=== PATIENT | female | born 1985 | race African-American/Black ===

== ENCOUNTER 2017-11-21 19:07 | Emergency (ER) | payer MEDICAID, OTHER ==
[~2017-11-21] VITALS: Ht 165.1 cm; Wt 72.6 kg
[~2017-11-21 19:07] MED LIST: FERR325T50 PO; PREN-96 PO
[2017-11-21 21:26] VITALS: BP 129/80
== END 2017-11-21 21:48 | disposition home or self-care (01) ==
LOC: ER 19:13
DX: J02.9 Acute pharyngitis, unspecified (principal)

== ENCOUNTER 2018-01-31 04:46 | Emergency (ER) | payer OTHER ==
[~2018-01-31] VITALS: Ht 165.1 cm; Wt 74.8 kg
[2018-01-31 04:51] VITALS: BP 128/78
== END 2018-01-31 06:04 | disposition home or self-care (01) ==
LOC: ER 04:49
DX: G43.909 Migraine, unspecified, not intractable, without status migrainosus (principal)
CPT/HCPCS: 70450

== ENCOUNTER 2018-04-29 19:40 | Emergency (ER) | payer OTHER ==
[~2018-04-29] VITALS: Ht 165.1 cm; Wt 72.6 kg
[2018-04-29 20:10] VITALS: BP 143/85
[2018-04-29 20:56] LABS: Urine Bacteria NONE SEEN /hpf (None Seen); Urine Blood 3+ /uL (Negative); Urine Mucus FEW (None Seen); Urine Specific Gravity 1.026 (1.001-1.035); Urine WBC 111 /hpf (0 - 5)
[2018-04-29 20:58] LABS: Amphetamine Screen, Urine NEGATIVE (NEGATIVE); Barbiturate Scree,Urine NEGATIVE (NEGATIVE); Benzodiazephine Screen, Urine NEGATIVE (NEGATIVE); Cannabinoid Screen, Urine NEGATIVE (NEGATIVE); Cocaine Screen, Urine NEGATIVE (NEGATIVE); Opiate Scree,Urine NEGATIVE (NEGATIVE); Phencyclidine Screen, Urine NEGATIVE (NEGATIVE)
[2018-04-29 21:19] LABS: Basophils # (auto) 0.1 uL; Basophils % (auto) 0.6 % (0.0-2.0); Eosinophils # (auto) 0.2 uL; Eosinophils % (auto) 1.3 % (0.0-7.0); Hematocrit 37.3 % (36.0-46.0); Hemoglobin 12.2 g/dL (12.2-16.2); Lymphocytes # (auto) 2.5 uL; Lymphocytes % (auto) 21.2 % (10.0-50.0); Mean Corpuscular Hemoglobin 28.2 pg (28.0-32.0); Mean Corpuscular Hgb Conc. 32.8 g/dL (32.0-36.0); Monocytes # (auto) 1.1 uL; Monocytes % (auto) 9.3 % (0.0-12.0); Neutrophils % (auto) 67.6 % (37.0-80.0); Nucleated Red Blood Cells % 0.1 %; Platelet Count (auto) 297 10^3/uL (140-450); Red Blood Cells 4.34 10^6/uL (4.0-5.20); Red Cell Distribution Width 13.2 % (11.8-14.3); White Blood Cell 11.8 10^3/uL (4.4-10.8)
[2018-04-29 21:36] LABS: Albumin 3.6 g/dL (3.4-5.0); BUN/Creatinine Ratio 16.4; Calcium 8.4 mg/dL (8.5-10.1); Potassium 3.2 mmol/L (3.5-5.1)
[2018-04-29 21:39] LABS: Bilirubin, Total 0.2 mg/dL (0.2-1.0); Total Protein 7.9 g/dL (6.4-8.2)
[2018-04-29] MEDS ORDERED: LEVOFLOXACIN 500 MG TAB PO ONE (22:15)
[2018-04-29] MEDS ORDERED: POTASSIUM CHL 20 Meq TABLET PO ONE (22:15)
== END 2018-04-30 00:30 | disposition left against medical advice (07) ==
LOC: ER 19:42
DX: R42 Dizziness and giddiness (principal); R51 Headache; R11.0 Nausea; Z53.21 Procedure and treatment not carried out due to patient leaving prior to being seen by health care provider
CPT/HCPCS: 36415; 70450; 80053; 80307; 81001; 85025

== ENCOUNTER 2018-07-23 10:56 | Emergency (ER) | payer OTHER ==
[~2018-07-23] VITALS: Ht 165.1 cm; Wt 74.4 kg
[2018-07-23 11:49] LABS: Urine Bacteria FEW /hpf (None Seen); Urine Blood 1+ /uL (Negative); Urine Mucus FEW (None Seen); Urine Specific Gravity 1.028 (1.001-1.035); Urine WBC 53 /hpf (0 - 5)
[2018-07-23 11:53] VITALS: BP 106/69
== END 2018-07-23 12:49 | disposition home or self-care (01) ==
LOC: ER 11:06
DX: N39.0 Urinary tract infection, site not specified (principal)
CPT/HCPCS: 74176; 81001; 81025

== ENCOUNTER 2019-02-04 08:10 | Emergency (ER) | payer MEDICAID ==
[~2019-02-04] VITALS: Ht 165.1 cm; Wt 72.6 kg
[2019-02-04] MEDS ORDERED: SODIUM CHLORIDE 0.9% 1,000 ML IV ONE ×2 (08:48)
[2019-02-04 08:59] LABS: Urine Bacteria FEW /hpf (None Seen); Urine Blood Negative /uL (Negative); Urine Mucus MODERATE (None Seen); Urine Specific Gravity 1.032 (1.001-1.035); Urine WBC 8 /hpf (0 - 5)
[2019-02-04] MEDS ORDERED: PROMETHAZINE HCL 25 MG/ML 1ML IV ONE (09:00)
[2019-02-04 09:43] LABS: Basophils # (auto) 0.1 uL; Basophils % (auto) 0.6 % (0.0-2.0); Eosinophils # (auto) 0.1 uL; Eosinophils % (auto) 0.4 % (0.0-7.0); Hematocrit 36.8 % (36.0-46.0); Hemoglobin 12.2 g/dL (12.2-16.2); Lymphocytes # (auto) 3.2 uL; Lymphocytes % (auto) 25.2 % (10.0-50.0); Mean Corpuscular Volume 84.8 fL (80.0-100.0); Monocytes # (auto) 0.8 uL; Monocytes % (auto) 6.6 % (0.0-12.0); Neutrophils # (auto) 8.4 uL; Neutrophils % (auto) 67.2 % (37.0-80.0); Platelet Count (auto) 327 10^3/uL (140-450); Red Blood Cells 4.35 10^6/uL (4.0-5.20); Red Cell Distribution Width 13.6 % (11.8-14.3); White Blood Cell 12.5 10^3/uL (4.4-10.8)
[2019-02-04 10:00] LABS: Albumin 3.7 g/dL (3.4-5.0); Calcium 9.4 mg/dL (8.5-10.1); Potassium 3.7 mmol/L (3.5-5.1)
[2019-02-04 10:09] LABS: Bilirubin, Total 0.3 mg/dL (0.2-1.0); Total Protein 8.1 g/dL (6.4-8.2)
[2019-02-04 11:00] VITALS: BP 110/62
== END 2019-02-04 13:09 | disposition home or self-care (01) ==
LOC: ER 08:10
DX: O21.8 Other vomiting complicating pregnancy (principal); O23.41 Unspecified infection of urinary tract in pregnancy, first trimester; Z3A.01 Less than 8 weeks gestation of pregnancy
CPT/HCPCS: 36415; 80053; 81001; 84702; 85025; 96361; 96374; 99283; J2550; J7030

== ENCOUNTER 2019-02-20 20:24 | Emergency (ER) | payer MEDICAID ==
[~2019-02-20] VITALS: Ht 165.1 cm; Wt 76.7 kg
[2019-02-20 21:33] LABS: Urine Blood Trace /uL (Negative); Urine Specific Gravity 1.027 (1.001-1.035)
[2019-02-20 22:20] VITALS: BP 129/78
[2019-02-20] MEDS ORDERED: cefTRIAXone SOD 1,000 MG VL IM ONE (22:30)
[2019-02-20] MEDS ORDERED: PHENAZOPYRIDINE HCL 100 MG TAB PO ONE (22:30)
== END 2019-02-20 23:07 | disposition home or self-care (01) ==
LOC: ER 20:25
DX: O23.41 Unspecified infection of urinary tract in pregnancy, first trimester (principal); Z3A.08 8 weeks gestation of pregnancy
CPT/HCPCS: 81003; 81025; 96372; 99283; J0696

== ENCOUNTER 2019-03-07 11:24 | Emergency (ER) | payer MEDICAID ==
[~2019-03-07] VITALS: Ht 165.1 cm; Wt 74.8 kg
[2019-03-07] MEDS ORDERED: SODIUM CHLORIDE 0.9% 1,000 ML IV ONE (11:38)
[2019-03-07 11:42] VITALS: BP 131/74
[2019-03-07] MEDS ORDERED: ACETAMINOPHEN 325 MG TAB PO ONE (11:45)
[2019-03-07] MEDS ORDERED: ONDANSETRON HCL 4 MG/2 ML VIAL IV ONE (11:45)
[2019-03-07 12:18] LABS: Basophils # (auto) 0 uL; Basophils % (auto) 0.4 % (0.0-2.0); Eosinophils # (auto) 0.1 uL; Eosinophils % (auto) 0.6 % (0.0-7.0); Hematocrit 34.9 % (36.0-46.0); Hemoglobin 11.9 g/dL (12.2-16.2); Lymphocytes # (auto) 0.8 uL; Lymphocytes % (auto) 7.8 % (10.0-50.0); Mean Corpuscular Hemoglobin 28.9 pg (28.0-32.0); Mean Corpuscular Volume 85.2 fL (80.0-100.0); Monocytes # (auto) 0.9 uL; Monocytes % (auto) 8.9 % (0.0-12.0); Neutrophils # (auto) 8.1 uL; Neutrophils % (auto) 82.3 % (37.0-80.0); Platelet Count (auto) 253 10^3/uL (140-450); Red Cell Distribution Width 13.4 % (11.8-14.3); White Blood Cell 9.9 10^3/uL (4.4-10.8)
[2019-03-07 12:31] LABS: Albumin 3.4 g/dL (3.4-5.0); Calcium 9.1 mg/dL (8.5-10.1); Potassium 3.8 mmol/L (3.5-5.1)
[2019-03-07 12:36] LABS: BUN/Creatinine Ratio 13.2; Bilirubin, Total 0.3 mg/dL (0.2-1.0); Total Protein 8.2 g/dL (6.4-8.2)
[2019-03-07 12:53] LABS: Urine WBC None Seen /hpf (0 - 5)
[2019-03-07 13:12] LABS: Urine Bacteria FEW /hpf (None Seen); Urine Blood 1+ /uL (Negative); Urine Mucus FEW (None Seen); Urine Specific Gravity 1.025 (1.001-1.035)
== END 2019-03-07 13:51 | disposition home or self-care (01) ==
LOC: ER 11:24
DX: B34.9 Viral infection, unspecified (principal); R19.7 Diarrhea, unspecified; O34.81 Maternal care for other abnormalities of pelvic organs, first trimester; N83.202 Unspecified ovarian cyst, left side; Z3A.11 11 weeks gestation of pregnancy
CPT/HCPCS: 36415; 76801; 80053; 81001; 85025; 96374; 99284; J2405

== ENCOUNTER 2019-03-30 18:12 | Emergency (ER) | payer MEDICAID ==
[~2019-03-30] VITALS: Ht 165.1 cm; Wt 74.4 kg
[2019-03-30 18:28] VITALS: BP 156/56
[2019-03-30] MEDS ORDERED: SODIUM CHLORIDE 0.9% 1,000 ML IV ONE (18:45)
[2019-03-30 19:18] LABS: Basophils # (auto) 0.1 uL; Basophils % (auto) 0.6 % (0.0-2.0); Eosinophils # (auto) 0.1 uL; Eosinophils % (auto) 0.8 % (0.0-7.0); Hemoglobin 11.3 g/dL (12.2-16.2); Lymphocytes # (auto) 2.7 uL; Lymphocytes % (auto) 20.2 % (10.0-50.0); Mean Corpuscular Hemoglobin 28.5 pg (28.0-32.0); Mean Corpuscular Hgb Conc. 33.2 g/dL (32.0-36.0); Mean Corpuscular Volume 85.6 fL (80.0-100.0); Monocytes # (auto) 1.1 uL; Monocytes % (auto) 8.3 % (0.0-12.0); Neutrophils # (auto) 9.4 uL; Neutrophils % (auto) 70.1 % (37.0-80.0); Platelet Count (auto) 306 10^3/uL (140-450); Red Blood Cells 3.97 10^6/uL (4.0-5.20); Red Cell Distribution Width 13.9 % (11.8-14.3); White Blood Cell 13.3 10^3/uL (4.4-10.8)
[2019-03-30 19:22] LABS: Urine Amorphous Crystal FEW /hpf (None Seen); Urine Bacteria FEW /hpf (None Seen); Urine Blood Negative /uL (Negative); Urine Hyaline Cast FEW /lpf (0 - 2); Urine Mucus FEW (None Seen); Urine Specific Gravity 1.026 (1.001-1.035); Urine WBC 2 /hpf (0 - 5)
[2019-03-30 19:40] LABS: Albumin 3.4 g/dL (3.4-5.0); Calcium 9.5 mg/dL (8.5-10.1); Potassium 3.4 mmol/L (3.5-5.1)
[2019-03-30 19:44] LABS: Bilirubin, Total 0.2 mg/dL (0.2-1.0); Total Protein 8.1 g/dL (6.4-8.2)
== END 2019-03-30 20:38 | disposition left against medical advice (07) ==
LOC: ER 18:14
DX: O99.612 Diseases of the digestive system complicating pregnancy, second trimester (principal); K21.9 Gastro-esophageal reflux disease without esophagitis; Z3A.14 14 weeks gestation of pregnancy
CPT/HCPCS: 36415; 76805; 80053; 81001; 84702; 85025

== ENCOUNTER → 2023-09-28 | Outpatient (CLI) | payer MEDICAID ==
[~2023-09-28] MED LIST changes: +PANT40TA2 PO
[2023-09-28 10:03] LABS: Basophils # (auto) 0.1 10 ^3/uL (0-0.2); Basophils % (auto) 0.5 % (0.0-2.0); Eosinophils # (auto) 0.1 10 ^3/uL (0-0.8); Eosinophils % (auto) 0.8 % (0.0-7.0); Hematocrit 33.1 % (36.0-46.0); Hemoglobin 11.4 g/dL (12.2-16.2); Lymphocytes # (auto) 2.2 10 ^3/uL (0.4-5.4); Lymphocytes % (auto) 18.6 % (10.0-50.0); Mean Corpuscular Hemoglobin 28.6 pg (28.0-32.0); Mean Corpuscular Hgb Conc. 34.3 g/dL (32.0-36.0); Mean Corpuscular Volume 83.2 fL (80.0-100.0); Monocytes # (auto) 0.8 10 ^3/uL (0-1.3); Monocytes % (auto) 6.7 % (0.0-12.0); Neutrophils # (auto) 8.6 10 ^3/uL (1.6-8.6); Neutrophils % (auto) 73.4 % (37.0-80.0); Nucleated Red Blood Cells % 0.1 %; Red Blood Cells 3.98 10^6/uL (4.0-5.20); Red Cell Distribution Width 14.3 % (11.8-14.3); White Blood Cell 11.7 10^3/uL (4.4-10.8)
[2023-09-28 10:45] LABS: Amphetamine Screen, Urine Neg (NEGATIVE)
[2023-09-28 10:46] LABS: Barbiturate Scree,Urine Neg (NEGATIVE); Benzodiazephine Screen, Urine Neg (NEGATIVE); Cannabinoid Screen, Urine Neg (NEGATIVE); Cocaine Screen, Urine Neg (NEGATIVE); Opiate Scree,Urine Neg (NEGATIVE); Phencyclidine Screen, Urine Neg (NEGATIVE)
[2023-09-28 10:49] LABS: Alanine Aminotransferase 19 U/L (7-40); Albumin 4.3 g/dL (3.2-4.8); Alkaline Phosphatase 76 U/L (46-116); Anion Gap 5 (5-15); Aspartate Aminotransferase < 8 U/L (13-40); BUN/Creatinine Ratio 11.9 (10.0-20.0); Blood Urea Nitrogen 7 mg/dL (9-23); Calcium 9.6 mg/dL (8.5-10.1); Carbon Dioxide 26 mmol/L (20-30); Chloride 103 mmol/L (98-107); Glucose 92 mg/dL (74-106); LDL Cholesterol 101 mg/dL (< 100); Potassium 3.8 mmol/L (3.5-5.1); Sodium 134 mmol/L (136-145); Triglycerides 81 mg/dL (< 150)
[2023-09-28 10:50] LABS: Bilirubin, Total 0.3 mg/dL (0.2-1.0); Cholesterol 184 mg/dL (< 200); HDL Cholesterol 63 mg/dL (40-59); Total Protein 7.5 g/dL (5.7-8.2)
[2023-09-28 10:52] LABS: Thyroid Stimulating Hormone 0.12 uIU/mL (0.55-4.78)
[2023-09-28 11:00] LABS: Beta HCG, Quantitative 175845.2 mIU/mL (1.5-4.2)
[2023-09-29 08:06] LABS: Varicella Zoster IgG Antibody 2651 index (Immune >165)
[2023-09-29 11:07] LABS: RPR Non Reactive (Non Reactive)
[2023-09-30 09:06] LABS: Chlamydia Trachomatis, NAA Negative (Negative); Neisseria gonorrhoeae, NAA Negative (Negative)
[2023-10-02 00:06] LABS: QuantiFERON-TB Gold Plus Negative (Negative)
== END | disposition home or self-care (01) ==
LOC: LAB 09:30
PROVIDERS: ATTEND Obstetrics & Gynecology
DX: Z34.80 Encounter for supervision of other normal pregnancy, unspecified trimester (principal); Z3A.00 Weeks of gestation of pregnancy not specified
CPT/HCPCS: 36415; 80053; 80061; 80307; 84439; 84443; 84702; 85025; 86592; 86703; 86762; 86787; 86850; 86900; 86901; 87086; 87340; 87902

== ENCOUNTER 2024-04-09 19:26 | Observation (INO) | payer MEDICAID ==
[~2024-04-09] VITALS: Ht 165.1 cm; Wt 81.6 kg
[2024-04-09 21:27] LABS: Basophils # (auto) 0 10 ^3/uL (0-0.2); Basophils % (auto) 0.3 % (0.0-2.0); Eosinophils # (auto) 0.1 10 ^3/uL (0-0.8); Eosinophils % (auto) 0.5 % (0.0-7.0); Hemoglobin 12.6 g/dL (12.2-16.2); Lymphocytes # (auto) 2.1 10 ^3/uL (0.4-5.4); Lymphocytes % (auto) 19.2 % (10.0-50.0); Mean Corpuscular Hemoglobin 29.1 pg (28.0-32.0); Mean Corpuscular Hgb Conc. 33.3 g/dL (32.0-36.0); Mean Corpuscular Volume 87.3 fL (80.0-100.0); Monocytes # (auto) 0.9 10 ^3/uL (0-1.3); Monocytes % (auto) 8.5 % (0.0-12.0); Neutrophils # (auto) 7.9 10 ^3/uL (1.6-8.6); Neutrophils % (auto) 71.5 % (37.0-80.0); Platelet Count (auto) 177 10^3/uL (140-450); Red Blood Cells 4.35 10^6/uL (4.0-5.20)
[2024-04-09 21:38] LABS: Protein, Urine 6.1 mg/dL (1-14); Urine Bacteria FEW /hpf (None Seen); Urine Blood Negative /uL (Negative); Urine Clarity Clear (Clear); Urine Color Colorless (Yellow); Urine Protein, UAD Negative (Negative); Urine Specific Gravity 1.005 (1.001-1.035); Urine Squamous Epithelial Cell FEW /hpf (<5); Urine Urobilinogen Normal (Negative)
[2024-04-09 21:41] LABS: Creatinine, Urine 25.62 mg/dL (30.0-125.0); Urine Protein/Creatinine Ratio 0.24
[2024-04-09 21:46] LABS: Amphetamine Screen, Urine Neg (NEGATIVE); Barbiturate Scree,Urine Neg (NEGATIVE); Benzodiazephine Screen, Urine Neg (NEGATIVE); Cannabinoid Screen, Urine Neg (NEGATIVE); Cocaine Screen, Urine Neg (NEGATIVE); Opiate Scree,Urine Neg (NEGATIVE); Phencyclidine Screen, Urine Neg (NEGATIVE)
[2024-04-09 21:46] LABS: INR 0.9 (0.9-1.15); Partial Thromboplastin Time 27.2 SEC (24.5-34.5); Prothrombin Time 9.6 sec (9.3-11.8)
[2024-04-09 21:49] LABS: Alanine Aminotransferase 23 U/L (7-40); Anion Gap 8 (5-15); Aspartate Aminotransferase 36 U/L (13-40); Calcium 10.2 mg/dL (8.7-10.4); Carbon Dioxide 24 mmol/L (20-31); Chloride 107 mmol/L (98-107); Glucose 80 mg/dL (74-106); Potassium 3.6 mmol/L (3.5-5.1); Sodium 139 mmol/L (136-145); Uric Acid 4.1 mg/dL (3.1-7.8)
[2024-04-09 21:50] LABS: Bilirubin, Total 0.6 mg/dL (0.2-1.0); Total Protein 7.2 g/dL (5.7-8.2)
[2024-04-09 21:55] LABS: Alkaline Phosphatase 184 U/L (46-116); BUN/Creatinine Ratio 8.3 (10.0-20.0); Blood Urea Nitrogen < 5 mg/dL (9-23)
--- NOTE | 2024-04-09 21:55 | DVH ---
Procedure: US BIOPHYSICAL PROFILE 04/09/2024 09:32 PM Indication: Rule Out Pre eclampsia Comparison: None Technique: Sonogram of gravid uterus utilizing grayscale and color techniques. FINDINGS: Single living intrauterine gestation. Presentation: Cephalic Placenta: Anterior heart rate: 153 bpm PAULIE: 12.8 cm Maternal cervix: Not visualized Biophysical Profile: breathing score: 2 movement score: 2 tone: 2 Quantitative PAULIE score: 2 Total score: 8/8 IMPRESSION: 1. Single living as above. 2. Biophysical profile score: 8/8.
[2024-04-09] MEDS ORDERED: ONDANSETRON HCL 4 MG/2 ML VIAL IV ONE (22:00)
--- NOTE | 2024-04-09 23:32 | DVHDS2 ---
Physician Discharge Progress N Final Diagnosis: chronic HTN Secondary Diagnosis: hayes perry contractions Operations or Procedures: Operations or Procedures S: 38yo IUP@38.5wks presents to OB triage with c/o nausea, diarrhea, epigastric pain that shoots to her back and uterine cramps. Denies LOF/VB/ALEX/vision changes. Endorses +FM. PNC with Dr. Martino, comlicated by [facility], not on meds, stopped taking baby aspirin at 37 weeks. O: VSS NST reactive SVE: /-3, vertex, intact 1L LR IV bolus and zofran 4mg IVP given Laboratory Tests Test 04/09/24 20:40 04/09/24 21:02 Range/Units Urine Color Colorless Yellow Urine Clarity Clear Clear Urine pH 7.0 5.0-9.0 Urine Specific [place] 1.005 1.001-1.035 Urine Protein Negative Negative Urine Ketones Trace Negative Urine Blood Negative Negative /uL Urine Nitrite Negative Negative Urine Bilirubin Negative Negative Urine Urobilinogen Normal Negative mg/dL Urine Leukocyte Esterase Negative Negative /uL Urine RBC None seen 0 - 4 /hpf Urine Microscopic WBC 0-5 /HPF Urine Squamous Epithelial Cells Few <5 /hpf Urine Bacteria Few H None Seen /hpf Urine Creatinine 25.62 L 30.0-125.0 mg/dL Urine Protein/Creatinine Ratio 0.24 Urine Glucose Normal Normal mg/dL Urine Total Protein 6.1 1-14 mg/dL Urine Opiates Screen Neg NEGATIVE Urine Fentanyl Screen Neg NEGATIVE Urine Barbiturates Screen Neg NEGATIVE Urine Phencyclidine Screen Neg NEGATIVE Urine Amphetamines Screen Neg NEGATIVE Urine Benzodiazepines Screen Neg NEGATIVE Urine Cocaine Screen Neg NEGATIVE Urine Cannabinoids Screen Neg NEGATIVE White Blood Count 11.0 H 4.4-10.8 10^3/uL Red Blood Count 4.35 4.0-5.20 10^6/uL Hemoglobin 12.6 12.2-16.2 g/dL Hematocrit 38.0 36.0-46.0 % Mean Corpuscular Volume 87.3 80.0-100.0 fL Mean Corpuscular Hemoglobin 29.1 28.0-32.0 pg Mean Corpuscular Hemoglobin Concent 33.3 32.0-36.0 g/dL Red Cell Distribution Width 14.0 11.8-14.3 % Platelet Count 177 140-450 10^3/uL Mean Platelet Volume 9.1 6.9-10.8 fL Neutrophils (%) (Auto) 71.5 37.0-80.0 % Lymphocytes (%) (Auto) 19.2 10.0-50.0 % Monocytes (%) (Auto) 8.5 0.0-12.0 % Eosinophils (%) (Auto) 0.5 0.0-7.0 % Basophils (%) (Auto) 0.3 0.0-2.0 % Neutrophils # (Auto) 7.9 1.6-8.6 10 ^3/uL Lymphocytes # (Auto) 2.1 0.4-5.4 10 ^3/uL Monocytes # (Auto) 0.9 0-1.3 10 ^3/uL Eosinophils # (Auto) 0.1 0-0.8 10 ^3/uL Basophils # (Auto) 0 0-0.2 10 ^3/uL Nucleated Red Blood Cells 0.0 % Prothrombin Time 9.6 9.3-11.8 sec Prothrombin Time INR 0.90 0.9-1.15 Activated Partial Thromboplast Time 27.2 24.5-34.5 SEC Sodium Level 139 136-145 mmol/L Potassium Level 3.6 3.5-5.1 mmol/L Chloride Level 107 98-107 mmol/L Carbon Dioxide Level 24 20-31 mmol/L Anion Gap 8 5-15 Blood Urea Nitrogen < 5 L 9-23 mg/dL Creatinine 0.60 0.550-1.02 mg/dL Glomerular Filtration Rate Calc 118 >90 mL/min BUN/Creatinine Ratio 8.3 L 10.0-20.0 Serum Glucose 80 74-106 mg/dL Uric Acid 4.1 3.1-7.8 mg/dL Calcium Level 10.2 8.7-10.4 mg/dL Total Bilirubin 0.6 0.2-1.0 mg/dL Aspartate Amino Transferase (AST) 36 13-40 U/L Alanine Aminotransferase (ALT) 23 7-40 U/L Alkaline Phosphatase 184 H 46-116 U/L Total Protein 7.2 5.7-8.2 g/dL Albumin 4.0 3.2-4.8 g/dL A: 38yo IUP@38.5wks Chronic HTN Hayes perry contractions P; D/C home kick counts and Preeclampsia warning signs reviewed. Labor precautions given and when to return to the hospital. Dr. Wang consulted, agrees with POC. Pt scheduled for IOL on 04/11/24 at 0900 for cHTN. Other Interventions Other Interventions [address] [address] Ph: [phone] DIAGNOSTIC IMAGING Diagnostic Imaging Report : [id number] Signed PATIENT: MARTA WILSON ACCT: [id number] UNIT: [id number] : 1985 LOC: [facility] ROOM / BED: TRIAGE1 / A AGE / SEX: 38 / F ADM STATUS: ADM IN SERVICE 36 ORDERING PHYSICIAN: FELIZ HARRIS CNM PROCEDURE(s): BPP - BIOPHYSICAL PROFILE REASON: Rule Out Pre eclampsia ORDER NUMBER(s): [id number], ACCESSION NUMBER(s): [id number] Procedure: US BIOPHYSICAL PROFILE 04/09/2024 09:32 PM Indication: Rule Out Pre eclampsia Comparison: None Technique: Sonogram of gravid uterus utilizing grayscale and color techniques. FINDINGS: Single living intrauterine gestation. Presentation: Cephalic Placenta: Anterior heart rate: 153 bpm PAULIE: 12.8 cm Maternal cervix: Not visualized Biophysical Profile: breathing score: 2 movement score: 2 tone: 2 Quantitative PAULIE score: 2 Total score: 8/8 IMPRESSION: 1. Single living as above. 2. Biophysical profile score: 8/8. ATED BY: MICHELLE HOLCOMB MD DICTATED DATE/TIME: 04/09/242151 SIGNED BY: MICHELLE HLOCOMB MD SIGNED DATE/TIME: 04/09/242151 CC: Condition on Discharge: Stable Disposition: Home Discharge Instructions: Diet: Regular Activity: No Restrictions, As Tolerated Medications: see med list Follow Up Care: Specialist: Pt scheduled for IOL on 04/11/24 at 0900 for cHTN. Discharge Statement: "Patient was advised to return to the ER or call 911 if any headaches, dizziness, shortness of breath, chest pain, abdominal pain, bleeding, fevers, or worsening of medical condition. Patient was counseled about treatment plan, medications, possible side effects, patientverbalized understanding. All questions were answered to the best of my ability. This discharge took greater then 30 minutes in planning, reviewing documentation, counseling the patient, and discussing with other team members." FELIZ HARRIS CNM Apr 09, 2024 23:32
== END 2024-04-09 23:56 | disposition home or self-care (01) ==
LOC: LDRP 19:26
PROVIDERS: ADMIT Obstetrics & Gynecology; ATTEND Obstetrics & Gynecology
DX: O47.9 False labor, unspecified (principal); O21.2 Late vomiting of pregnancy; O16.3 Unspecified maternal hypertension, third trimester; O99.891 Other specified diseases and conditions complicating pregnancy; M54.9 Dorsalgia, unspecified; R10.11 Right upper quadrant pain; Z98.890 Other specified postprocedural states; Z79.899 Other long term (current) drug therapy; Z3A.38 38 weeks gestation of pregnancy
CPT/HCPCS: 36415; 59025; 76818; 80053; 80307; 81001; 81002; 82570; 84156; 84550; 85025; 85610; 85730; 86850; 86900; 86901; 94760; 96360; G0378; 96366

== ENCOUNTER 2024-04-11 11:30 | Inpatient (IN) | payer MEDICAID ==
[~2024-04-11] VITALS: Ht 165.1 cm; Wt 81.6 kg
[2024-04-11] MEDS ORDERED: LIDOCAINE 2%HCL (LOCAL ANESTH.) INJ 20ML MDV IJ PRN (11:45)
[2024-04-11] MEDS ORDERED: LACTATED RINGER'S 1,000 ML IV SCH (11:45)
[2024-04-11] MEDS ORDERED: BUTORPHANOL TARTRATE 2 MG/1 ML VIAL IV PRN ×2 (11:45)
--- NOTE | 2024-04-11 12:14 | DVHHP2 ---
OB CC & HPI Date Date of Admission: Apr 11, 2024 Patient Identification: : 8 Para: 4 EGA: 39 Chief Complaints: Reason for admission: induction of labor History of Present Complaints 38y IUP 39 wk, Scheduled of IOL by Dr. Wang for history of CHTN, not on meds GBS neg Patient asymptomatic. BP's are normal. AMA Past Medical History Cardiac: HTN Pulmonary: No pertinent Hx Central Nervous System: No pertinent Hx GI: No pertinent Hx Hemotology/Oncology: No pertinent Hx Hepatobiliary: No pertinent Hx Psychiatric: No pertinent Hx Musculoskeletal: No pertinent Hx Rheumotologic: No pertinent Hx Infectious Disease: No peritnent Hx ENT: No pertinent Hx Renal/: No pertinent Hx Endocrine: No pertinent Hx Dermatology: No pertinent Hx Past Surgical History: No pertinent Hx Allergies: Coded Allergies: NO KNOWN ALLERGIES (Unverified , 02/04/19) Home Meds Active Scripts Pantoprazole Sodium Sesquihydr (Protonix) 40 Mg Tab, 40 MG PO DAILY for 7 Days, #7 TAB Prov:VIVIANA MUNOZ MD 03/06/23 Reported Medications Ferrous Sulfate (Iron Supplement) 325 Mg Tab, 1 TAB PO DAILY, #30 TAB 10 Refills 03/16/14 Vit W/ Ferrous Fumara ( One Daily) Daily Tab, 1 TAB PO DAILY, #90 TAB 3 Refills 03/12/14 Current Medications Current Medications Medications (Trade) Dose Ordered Sig/Ja Route PRN Reason Start Time Stop Time Status Last Admin Lactated Ringer's 1,000 ml @ 125 mls/hr Q8H IV 04/11/24 11:45 UNV Witch Yessi (Tucks) 1 pad PRN PRN TOP PERINEAL AREA DISCOMFORT 04/11/24 11:45 UNV Sodium Lauryl Sulfate (Phisoderm) 240 ml PRN PRN TOP PERINEAL AREA DISCOMFORT 04/11/24 11:45 UNV Benzocaine (Dermoplast) 1 applic PRN PRN TOP PERINEAL AREA DISCOMFORT 04/11/24 11:45 UNV Butorphanol Tartrate (Stadol Injection) 1 mg Q4HPRN PRN IV MODERATE PAIN (4-6 PAIN SCALE) 04/11/24 11:45 UNV Butorphanol Tartrate (Stadol Injection) 2 mg Q4HPRN PRN IV SEVERE PAIN (7-10 PAIN SCALE) 04/11/24 11:45 UNV Misoprostol (Cytotec) 50 mcg Q4HPRN PRN PO CERVICAL RIPENING 04/11/24 11:45 UNV Lidocaine HCl (Xylocaine) 20 ml ONCE PRN IJ PERINEAL AREA DISCOMFORT 04/11/24 11:45 UNV Family & Social History Family/Social History Blood Type: A+ Rubella: immune RPR/VDRL: Negative GBS Status: Negative HBsAG: Negative Review of Systems Constitutional: No symptom reported Ears, Nose, & Throat: No symptom reported Eyes: No symptom reported Pulmonary/Respiratory: No symptom reported Cardiovascular: No symptom reported Gastrointestinal: No symptom reported Genitourinary: No symptom reported Musculoskeletal: No symptom reported Skin: No symptom reported Psychiatric: No symptom reported Endocrine: No symptom reported Hemotologic/Lymphatic: No symptom reported OB Admission Exam Physical Exam HEENT: NCAT Heart: Rhythm Normal Lungs: Clear Abdomen: Gravid Extremities: Normal Reflexes: Normal Pelvic Exam: RN exam: 60/-3 VTX Heart Rate: 130's Accelerations: Accelerations Present Decelerations: No Decelerations Short Term Variability: Present Nursing Home Variability: Average (6-25) Contractions on Admission: >10 Minutes Apart Intensity: Mild OB Plan Plan Admitting Diagnosis: Hx of CHTN, not on meds IUP 39 wk, AMA, Scheduled Induction of Labor GBS neg [place] 1 FHR Plan: Induction Other Plan: Admit for labor induction Cytotec per protocol R/B/A discussed, informed consent obtained. ADELIA DAMON DO Apr 11, 2024 12:13
[2024-04-11 12:47] LABS: Basophils # (auto) 0 10 ^3/uL (0-0.2); Basophils % (auto) 0.3 % (0.0-2.0); Eosinophils # (auto) 0 10 ^3/uL (0-0.8); Eosinophils % (auto) 0.4 % (0.0-7.0); Hematocrit 35.7 % (36.0-46.0); Hemoglobin 12.1 g/dL (12.2-16.2); Lymphocytes # (auto) 1.7 10 ^3/uL (0.4-5.4); Lymphocytes % (auto) 17.6 % (10.0-50.0); Mean Corpuscular Hemoglobin 29.7 pg (28.0-32.0); Mean Corpuscular Volume 87.6 fL (80.0-100.0); Monocytes # (auto) 0.9 10 ^3/uL (0-1.3); Monocytes % (auto) 9.1 % (0.0-12.0); Neutrophils # (auto) 6.9 10 ^3/uL (1.6-8.6); Neutrophils % (auto) 72.6 % (37.0-80.0); Nucleated Red Blood Cells % 0.1 %; Platelet Count (auto) 178 10^3/uL (140-450); Red Blood Cells 4.08 10^6/uL (4.0-5.20); Red Cell Distribution Width 13.8 % (11.8-14.3); White Blood Cell 9.5 10^3/uL (4.4-10.8)
[2024-04-11 12:53] LABS: Urine Bacteria FEW /hpf (None Seen); Urine Blood Negative /uL (Negative); Urine Clarity Hazy (Clear); Urine Color Yellow (Yellow); Urine Mucus FEW (None Seen); Urine Protein, UAD 1+ (Negative); Urine Specific Gravity 1.027 (1.001-1.035); Urine Squamous Epithelial Cell MOD /hpf (<5); Urine Urobilinogen 6 mg/dL (Negative); Urine WBC 5 /HPF (0-5); Urine pH 6.5 (5.0-9.0)
[2024-04-11 13:01] LABS: INR 0.91 (0.9-1.15); Partial Thromboplastin Time 26.6 SEC (24.5-34.5); Prothrombin Time 9.7 sec (9.3-11.8)
[2024-04-11 13:10] LABS: Amphetamine Screen, Urine Neg (NEGATIVE)
[2024-04-11 13:11] LABS: Barbiturate Scree,Urine Neg (NEGATIVE); Cannabinoid Screen, Urine Neg (NEGATIVE)
[2024-04-11 13:11] LABS: Alanine Aminotransferase 20 U/L (7-40); Anion Gap 7 (5-15); Aspartate Aminotransferase 24 U/L (13-40); BUN/Creatinine Ratio 9.8 (10.0-20.0); Calcium 9.3 mg/dL (8.7-10.4); Carbon Dioxide 24 mmol/L (20-31); Chloride 107 mmol/L (98-107); Glucose 95 mg/dL (74-106); Potassium 3.5 mmol/L (3.5-5.1); Sodium 138 mmol/L (136-145)
[2024-04-11 13:12] LABS: Bilirubin, Total 0.7 mg/dL (0.2-1.0); Total Protein 6.9 g/dL (5.7-8.2)
[2024-04-11 13:14] LABS: Benzodiazephine Screen, Urine Neg (NEGATIVE); Cocaine Screen, Urine Neg (NEGATIVE); Opiate Scree,Urine Neg (NEGATIVE); Phencyclidine Screen, Urine Neg (NEGATIVE)
[2024-04-11 13:14] LABS: Alkaline Phosphatase 173 U/L (46-116); Blood Urea Nitrogen 6 mg/dL (9-23)
[2024-04-11] MEDS: miSOPROStol 50 MCG per PRE-CUT 1/2 TAB PO PRN (13:47)
[2024-04-11] MEDS: PHISODERM TOP SOLN 240ML BTL TOP PRN (14:00)
[2024-04-11] MEDS: WITCH HAZEL-GLYCERIN PAD TOP PRN (14:00)
[2024-04-11] MEDS: DERMOPLAST 60ML BOTTLE TOP PRN (14:00)
[2024-04-11] MEDS ORDERED: LABETALOL HCL 20 MG/4 ML VL IV PRN (14:45)
[2024-04-11 15:33] LABS: Protein, Urine 60.3 mg/dL (1-14)
[2024-04-11 15:44] LABS: Urine Protein/Creatinine Ratio 0.23
[2024-04-11 15:47] LABS: Creatinine, Urine 264.6 mg/dL (30.0-125.0)
[2024-04-11] MEDS: LACTATED RINGER'S 1,000 ML IV ONE (20:02)
[2024-04-11] MEDS: ROPIVACAINE HCL 200 ML ONE (20:02)
--- NOTE | 2024-04-11 20:34 | LDN2 ---
Labor and Delivery Note Date 04/11/24 Age 38 8 Para 5 AB 3 EGA Term Diagnosis Term , CHTN, not on medications Induction of labor, s/p Vaginal Delivery: VTX Vacuum Assisted: No Placenta: Spontaneous Sex: Male Weight Pending Apgars 8/9 Amniotic Fluid: Clear Anesthesia Epidural Episiotomy: No Repaired with N/A, no lacerations EBL 50 mL Labs Laboratory Tests 09/28/23 09:44: Hepatitis B Surface Antigen Negative, HIV (1&2) Antibody Negative, Rubella Antibody Positive Blood Bank 04/11/24 12:16: Blood Type A POSITIVE Complications None ADELIA DAMON DO Apr 11, 2024 20:34
[2024-04-11] MEDS: LABETALOL HCL 200 MG TAB ONE (21:24)
[2024-04-11] MEDS: LACT. RINGERS/OXYTOCIN 20UNITS 500 ML IV ONE ×2 (21:30→21:31)
[2024-04-11] MEDS: LABETALOL HCL 200 MG TAB PO SCH (21:52)
[2024-04-11] MEDS: ACETAMINOPHEN 325 MG TAB PO PRN (22:08)
[2024-04-11 22:18] VITALS: PULSE 104; RESP 16; O2SAT 98
[2024-04-11 23:00] VITALS: BP 138/75; PULSE 96; RESP 16; TEMP 98.5; O2SAT 97
[2024-04-11] MEDS ORDERED: AMMONIA 0.33 ML INHALANT IN ONE (23:47)
[2024-04-12 03:00] VITALS: BP 149/89; PULSE 91; RESP 16; TEMP 98.1; O2SAT 97
[2024-04-12] MEDS: IBUPROFEN 600 MG TAB PO PRN (03:28)
--- NOTE | 2024-04-12 05:17 | DVHPN2 ---
Progress Note Date Seen: Apr 12, 2024 Subjective PPD#1 s/p . CHTN, not previously on medication s/p Labetalol during labor and for severe HTN, asymptomatic Denies epigastric pain, headache, Chest pain or SOB. Lochia mild. Pain controlled. vital signs Vital Sign Date Time Temp Pulse Resp B/P (MAP) Pulse Ox O2 Delivery O2 Flow Rate FiO2 04/12/24 03:00 98.1 91 16 149/89 (109) 97 98.1 04/11/24 22:18 Room Air Total Intake and Output 04/11/24 04/11/24 04/12/24 15:00 23:00 07:00 Output Total 1250 ml Balance -1250 ml medications Current Medications Medications Dose Ordered Sig/Ja Route Start Time Stop Time Status Last Admin Dose Admin Lactated Ringer's 1,000 ml @ 125 mls/hr Q8H IV 04/11/24 11:45 Witch Yessi 1 pad PRN PRN TOP 04/11/24 11:45 04/11/24 14:00 1 PAD Sodium Lauryl Sulfate 240 ml PRN PRN TOP 04/11/24 11:45 04/11/24 14:00 240 ML Benzocaine 1 applic PRN PRN TOP 04/11/24 11:45 04/11/24 14:00 1 APPLIC Butorphanol Tartrate 1 mg Q4HPRN PRN IV 04/11/24 11:45 Butorphanol Tartrate 2 mg Q4HPRN PRN IV 04/11/24 11:45 Misoprostol 50 mcg Q4HPRN PRN PO 04/11/24 11:45 04/11/24 13:47 50 MCG Lidocaine HCl 20 ml ONCE PRN IJ 04/11/24 11:45 Labetalol HCl 20 mg PRN PRN IV 04/11/24 14:45 Hold Labetalol HCl 200 mg BID PO 04/11/24 22:00 Ibuprofen 600 mg Q6HP PRN PO 04/11/24 22:00 04/12/24 03:28 600 MG Acetaminophen 650 mg Q4HP PRN PO 04/11/24 22:00 04/11/24 22:08 650 MG laboratory and microbiology Laboratory Tests 04/11/24 12:16 Test 04/11/24 12:16 Range/Units Serum Glucose 95 74-106 mg/dL Objective O: AFeb BP 140/80's Chest: heart and lung sounds normal. Abd soft, non-tender, fundus firm, BS, no rebound or guarding, Ext Neg Homans, Non-tender, edema Lochia - minimal Labs Reviewed Assessment/Plan PPD#1 s/p Chronic HTN, BP better controlled Plan Continue PO Labetalol BID Observe Bp's D/C planning Plan discussed with: Patient, Other (RN) ADELIA DAMON DO Apr 12, 2024 05:17
[2024-04-12 07:00] VITALS: BP 131/80; PULSE 91; RESP 16; TEMP 98.5; O2SAT 98
[2024-04-12 11:00] VITALS: BP 141/90; PULSE 81; RESP 16; TEMP 98.6; O2SAT 98
[2024-04-12 15:00] VITALS: BP 120/79; PULSE 81; RESP 16; TEMP 97.8; O2SAT 93
[2024-04-12 19:00] VITALS: BP 126/70; PULSE 93; RESP 18; TEMP 97.9; O2SAT 95
[2024-04-12] MEDS: ePHEDrine SULFATE 50 MG/ML AMP IV ONE (20:09)
[2024-04-12] MEDS: NALOXONE HCL 0.4 MG/ML VIAL IV ONE (20:10)
[2024-04-12] MEDS: LABETALOL HCL 20 MG/4 ML VL IV ONE (20:10)
[2024-04-12 23:30] VITALS: BP 124/71; PULSE 86; RESP 16; TEMP 97.9; O2SAT 97
[2024-04-13 03:00] VITALS: BP 134/85; PULSE 78; RESP 14; TEMP 97.5; O2SAT 95
[2024-04-13 06:45] VITALS: BP 130/79; PULSE 77; RESP 18; TEMP 98.1; O2SAT 96
--- NOTE | 2024-04-13 07:53 | DVHPN2 ---
Chief Complaints Patient reports: No new complaints, Feels better Nursing reports: No new complaints, No chest pain, No dizziness, No cough Objective Vitals Vital Signs Date Time Temp Pulse Resp B/P (MAP) Pulse Ox O2 Delivery O2 Flow Rate FiO2 04/13/24 03:00 97.5 78 14 134/85 (101) 95 97.5 04/12/24 18:45 Room Air General: Normal Head/Eyes: Normal ENT: Normal Neck: Normal Lungs: Normal Cardiovascular: Normal Abdominal: Normal Musculoskeletal: Normal Extremities: Normal Skin: Normal Neurological: Normal Studies Laboratory Tests 04/11/24 12:16 Test 04/11/24 12:16 Range/Units Serum Glucose 95 74-106 mg/dL Ass/Plan Assessment PPD 2 Plan See DC summary See DC orders IVONE MCKINNON DO Apr 13, 2024 07:53
--- NOTE | 2024-04-13 07:54 | DVHDS2 ---
Obstetrics Discharge Summary Obstetrics Discharge Summary Date of Admission: Apr 11, 2024 Date of Discharge: Apr 13, 2024 Reason For Admission: Onset of Labor Intrapartum Procedures: Spontaneous vaginal deliv Procedures: None Operative Complicat: None Discharge Diagnosis: Term -Delivered Discharge Information: Activity (pelvic rest 6 weeks), Diet (Routine), Medications (None), Instructions (Routine), Discharge to (Home), Discarge date (04/13/2024) IVONE MCKINNON DO Apr 13, 2024 07:54
[2024-04-13 11:00] VITALS: BP 123/74; PULSE 87; RESP 18; TEMP 98.2; O2SAT 96
[2024-04-13] MEDS ORDERED: LABE200T33 PO (11:15)
== END 2024-04-13 13:03 | disposition home or self-care (01) | DRG 560 ==
LOC: LDRP 11:30
PROVIDERS: ADMIT Obstetrics & Gynecology; ATTEND Obstetrics & Gynecology
PROC: 10E0XZZ Delivery of Products of Conception, External Approach (ICD-10-PCS; principal; 2024-04-11)
PROC: 3E0R3BZ Introduction of Anesthetic Agent into Spinal Canal, Percutaneous Approach (ICD-10-PCS; 2024-04-11)
PROC: 00HU33Z Insertion of Infusion Device into Spinal Canal, Percutaneous Approach (ICD-10-PCS; 2024-04-11)
DX: O10.92 Unspecified pre-existing hypertension complicating childbirth (principal); Z37.0 Single live birth; Z3A.39 39 weeks gestation of pregnancy
CPT/HCPCS: 36415; 59025; 59409; 62282; 80053; 80307; 81001; 81002; 82570; 84156; 85025; 85610; 85730; 86592; 86780; 86803; 86850; 86900; 86901; 94760; 94762; 96360; 96361; 96365; 96366; G0378; J2590

== ENCOUNTER 2024-04-16 10:33 | Emergency (ER) | payer MEDICAID ==
[~2024-04-16] VITALS: Ht 165.1 cm; Wt 74.2 kg
[~2024-04-16 10:33] MED LIST changes: +LABE200T33 PO
[2024-04-16 11:59] VITALS: BP 127/87; PULSE 82; RESP 18; TEMP 98.3; O2SAT 96
--- NOTE | 2024-04-16 12:31 | ED.PDOC ---
History of Present Illness HPI Comments 38-year-old female came to the ER stating that she has been having dizziness for the past few days. She did have normal delivery four days ago. She has not been eating or sleeping well. Denies nausea vomiting headache blurring of vision. Denies trauma. Denies any other symptoms. Chief Complaint: Dizziness Time Seen by MD: 10:38 Primary Care Provider: UNK Reviewed Notes: Nurses Notes, Medications, Allergies Allergies: Coded Allergies: NO KNOWN ALLERGIES (Unverified , 02/04/19) Home Meds Active Scripts Pantoprazole Sodium Sesquihydr (Protonix) 40 Mg Tab, 40 MG PO DAILY for 7 Days, #7 TAB Prov:VIVIANA MUNOZ MD 03/06/23 Reported Medications Labetalol Hcl (Labetalol Hcl) 200 Mg Tab, 200 MG PO BID for 30 Days, MG 04/13/24 Ferrous Sulfate (Iron Supplement) 325 Mg Tab, 1 TAB PO DAILY, #30 TAB 10 Refills 03/16/14 Vit W/ Ferrous Fumara ( One Daily) Daily Tab, 1 TAB PO DAILY, #90 TAB 3 Refills 03/12/14 Information Source: Patient Mode of Arrival: Ambulatory Severity: Mild Timing: Days Duration: Since onset Past Medical History PAST MEDICAL HISTORY: Denies Surgical History: Denies all surgeries ASSOCIATE SOFTWARE DEVELOPMENT ENGINEER History: No Pertinent ASSOCIATE SOFTWARE DEVELOPMENT ENGINEER History Family History Family History: Reviewed,noncontributory to illness Social History Smoker: Non-Smoker Alcohol: Denies ETOH Use Drugs: Denies Drug Use Lives In: Home Constitutional: denies: chills, diaphoresis, fatigue, fever, malaise, sweats, weakness, others EENTM: denies: blurred vision, double vision, ear bleeding, ear discharge, ear drainage, ear pain, ear ringing, eye pain, eye redness, hearing loss, mouth pain, mouth swelling, nasal discharge, nose bleeding, nose congestion, nose pain, photophobia, tearing, throat pain, throat swelling, voice changes, others Respiratory: denies: cough, hemoptysis, orthopnea, SOB at rest, shortness of breath, SOB with excertion, stridor, wheezing, others Cardiovascular: denies: chest pain, dizzy spells, diaphoresis, Dyspnea on exertion, edema, irregular heart beat, left arm pain, lightheadedness, palpitations, PND, syncope, others Gastrointestinal: denies: abdomen distended, abdominal pain, blood streaked bowels, constipated, diarrhea, dysphagia, difficulty swallowing, hematemesis, melena, nausea, poor appetite, poor fluid intake, rectal bleeding, rectal pain, vomiting, others Genitourinary: denies: abnormal vagina bleeding, burning, dyspareunia, dysuria, flank pain, frequency, hematuria, incontinence, pain, , vagina discharge, urgency, others Neurological: reports: dizziness; denies: fainting, headache, left sided numbness, left sided weakness, numbness, paresthesia, pre-existing deficit, right sided numbness, right sided weakness, seizure, speech problems, tingling, tremors, weakness, others Musculoskeletal: denies: back pain, gout, joint pain, joint swelling, muscle pain, muscle stiffness, neck pain, others Integumetry: denies: bruises, change in color, change in hair/nails, dryness, laceration, lesions, lumps, rash, wounds, others Allergic/Immunocompromised: denies: Difficulty Healing, Frequent Infections, Hives, Itching, others Hematologic/Lymphatic: denies: anemia, blood clots, easy bleeding, easy bruising, swollen glands, others Endocrine: denies: excessive hunger, excessive sweating, excessive thirst, excessive urination, flushing, intolerance to cold, intolerance to heat, unexplained weight gain, unexplained weight loss, others Psychiatric: denies: anxiety, bipolar disorder, depression, hopeless, panic disorder, schizophrenia, sleepless, suicidal, others Physical Exam General Appearance: Moderate Distress HEENT: Normal ENT Inspection, Pharynx Normal, TMs Normal Neck: Full Range of Motion, Non-Tender, Normal, Normal Inspection Respiratory: Chest Non-Tender, Lungs Clear, No Accessory Muscle Use, No Respiratory Distress, Normal Breath Sounds Cardiovascular: No Edema, No JVD, No Murmur, No Gallop, Normal Peripheral Pulses, Regular Rate/Rhythm Breast Exam: Deferred Gastrointestinal: No Organomegaly, Non Tender, No Pulsatile Mass, Normal Bowel Sounds, Soft Genitalia: Deferred Pelvic: Deferred Rectal: Deferred Extremities: No calf tenderness, Normal capillary refill, Normal inspection, Normal range of motion, Non-tender, No pedal edema Musculoskeletal : Apperance: Normal Neurologic: Alert, visual arts teacher II-XII nml as Tested, No Motor Deficits, Normal Affect, Normal Mood, No Sensory Deficits Cerebellar Function: Normal Reflexes: Normal Skin: Dry, Normal Color, Warm Peripheral Pulses: 3+ Radial (R), 3+ Radial (L) Lymphatic: No Adenopathy Was a procedure done? Was a procedure done?: No Differential Dx Considerations may include: Dehydration X-Ray, Labs, Meds, VS Vital Signs Date Time Temp Pulse Resp B/P (MAP) Pulse Ox O2 Delivery O2 Flow Rate FiO2 04/16/24 11:59 98.3 82 18 127/87 (100) 96 98.3 04/16/24 11:30 98.3 82 18 127/87 (100) 96 Lab Test 04/16/24 11:13 Range/Units POC Glucose 100 70-106 mg/dl Current Medications Medications (Trade) Dose Ordered Sig/Ja Route Start Time Stop Time Status Last Admin Sodium Chloride 1,000 ml @ 1,000 mls/hr Q1H ONCE IV 04/16/24 12:30 04/16/24 13:29 04/16/24 12:58 Patient alert. Possibly . Vitals stable. Answering all questions. Blood sugar normal. Physical examination pristine. Establish intravenous access. Was given fluids. CT of the head reviewed does not show any acute changes. Explained to the patient. Was told to follow up with her primary care physician. Was told to come back if there is any problem. Time of 1ST Reevaluation: 12:29 Reevaluation 1ST: Improved Patient Education/Counseling: Diagnosis, Treatment, Prognosis, Need For Follow Up Family Education/Counseling: No Family Present Departure 1 Departure Time of Disposition: 12:30 Impression: Primary Impression: Autonomic disorder Additional Impression: Dehydration Disposition: 01 HOME / SELF CARE / HOMELESS Condition: Good Discharged With: Self Critical Care Note Critical Care Time?: No Stability Stability form required: No Heart Score Heart Score: Heart Score Response (Comments) Value History N/A 0 EKG N/A 0 Age N/A 0 Risk Factors N/A 0 Troponin N/A 0 Total 0 VIVIANA MUNOZ MD Apr 16, 2024 12:31
[2024-04-16] MEDS: SODIUM CHLORIDE 0.9% 1,000 ML IV ONE (12:58)
--- NOTE | 2024-04-16 13:08 | DVH ---
EXAM: CT HEAD WITHOUT CONTRAST INDICATION: dizzy TECHNIQUE: CT of the head without intravenous contrast. Radiation Dose Information: CT Dose: CTDI volume is 55.4 mGy. Dose-length product is 870.14 mGy*cm The dose indicators for CT are the volume Computed Tomography (CT) Dose Index (CTDIvol) and the Dose Length Product (DLP), and are measured in units of mGy and mGy-cm, respectively. These indicators are not patient dose, but values generated from the CT scanner acquisition factors. The report includes radiation exposure data for exposures received during this examination. COMPARISON: None FINDINGS: There is no evidence of acute intracranial hemorrhage, extra-axial collection, mass effect, midline s hift, herniation or hydrocephalus. The ventricles, sulci and cisterns are age appropriate. The landeros-white differentiation is intact. Patchy periventricular and subcortical white matter hypoattenuation is nonspecific but may be related to small vessel ischemic disease. The visualized paranasal sinuses and mastoid air cells are clear. The surrounding soft tissues and osseous structures are unremarkable. IMPRESSION: No acute intracranial abnormality.
--- NOTE | 2024-04-17 12:41 | ECG ---
[facility] Test Date: 2024-04-16 Test Time: 11:18:21 Pat Name: MARTA WILSON Department: ED Room: Gender: F Grain Operator: GRACE ZAYASB: 1985 Requested By: VIVIANA MUNOZ Order Number: [id number] Reading MD: Faisal Burns Measurements Intervals [place] Rate: 75 P: 52 NH: 126 QRS: 46 QRSD: 91 T: 25 QT: 372 QTc: 416 Interpretive Statements Sinus rhythm Abnormal R-wave progression, early transition Baseline wander in lead(s) V2 Electronically Signed On 04-18-2024 13:10:23 PST by Faisal Burns Please click the below link to view image of tracing.
== END 2024-04-16 13:10 | disposition home or self-care (01) ==
LOC: ER 10:33
DX: G90.9 Disorder of the autonomic nervous system, unspecified (principal); E86.0 Dehydration; Z79.899 Other long term (current) drug therapy
CPT/HCPCS: 70450; 82962; 93005; 96360; 99284; J7030